=== PATIENT | male | born 1960 | race Caucasian/White ===

== ENCOUNTER 2020-02-27 18:18 | Emergency (ER) | payer OTHER ==
[~2020-02-27] VITALS: Ht 177.8 cm; Wt 121.8 kg
[2020-02-27 18:37] VITALS: BP 153/88; TEMP 98.2
[2020-02-27] MEDS ORDERED: CLEOCIN HCL300 MG PO (20:07)
[2020-02-27] MEDS ORDERED: NORCO 325 MG-51 TAB PO (20:07)
[2020-02-27 20:45] VITALS: PULSE 81
== END 2020-02-27 20:45 | disposition home or self-care (01) ==
LOC: COL.ER 18:18
DX: S62.633B Displaced fracture of distal phalanx of left middle finger, initial encounter for open fracture (principal); W23.0XXA Caught, crushed, jammed, or pinched between moving objects, initial encounter; Y92.59 Other trade areas as the place of occurrence of the external cause